=== PATIENT | male | born 1985 | race Caucasian/White ===

== ENCOUNTER 2018-12-30 00:19 | Emergency (ER) | payer MEDICAID ==
[~2018-12-30] VITALS: Ht 172.7 cm; Wt 100.7 kg
[2018-12-30 00:57] VITALS: BP 134/92
== END 2018-12-30 01:12 | disposition home or self-care (01) ==
LOC: ER 00:21
DX: B35.4 Tinea corporis (principal); A49.02 Methicillin resistant Staphylococcus aureus infection, unspecified site; F17.200 Nicotine dependence, unspecified, uncomplicated; F12.10 Cannabis abuse, uncomplicated
CPT/HCPCS: A4663

== ENCOUNTER 2019-04-05 00:21 | Emergency (ER) | payer MEDICAID ==
[~2019-04-05] VITALS: Ht 172.7 cm; Wt 100.2 kg
--- NOTE | 2019-04-05 01:00 | NUR ---
Patient ambulated with stable gait. A/Ox4. No neuro deficts. Patient here for wound check on LLE. States that he has been seen at a different hospital but was not prescribed ATB's. Here for wound check and prescription.
[2019-04-05] MEDS ORDERED: SULFAMETH/TRIMETH 800/160 MG TABLET PO ONE (01:15)
[2019-04-05] MEDS ORDERED: IBUPROFEN 600 MG TABLET ONE (01:15)
[2019-04-05] MEDS ORDERED: MUPIROCIN 2% OINT 22 GM TUBE TP ONE (01:15)
[2019-04-05] MEDS ORDERED: IBUPROFEN 600 MG TABLET PO ONE (01:30)
[2019-04-05] MEDS ORDERED: SULFAMETH/TRIMETH 800/160 MG TABLET ONE (01:38)
[2019-04-05] MEDS ORDERED: MUPIROCIN 2% OINT 22 GM TUBE ONE (01:39)
--- NOTE | 2019-04-05 01:47 | NUR ---
Patient given written and verbal discharge instructions. Patient verbalizes understanding of instructions. Patient is ambulatory with steady gait. Refuses offer of long term placement. Patient given list of available shelters in surrounding area.
== END 2019-04-05 01:49 | disposition home or self-care (01) ==
LOC: ER 00:25
DX: L03.116 Cellulitis of left lower limb (principal); L08.9 Local infection of the skin and subcutaneous tissue, unspecified; F12.10 Cannabis abuse, uncomplicated; F17.200 Nicotine dependence, unspecified, uncomplicated; Z59.0 Homelessness
CPT/HCPCS: A4663